=== PATIENT | female | born 1985 | race Caucasian/White ===

== ENCOUNTER 2018-12-20 07:02 | Inpatient (IN) | payer BC, SELFPAY ==
[2017-07-31 07:02] VITALS: BMI 22.2
[2018-12-20 07:24] VITALS: BMI 27.0
[2018-12-20] MEDS: Lactated Ringers 1,000 ML 50 ML IV ×3 (07:45→16:51)
[2018-12-20 08:07] LABS: Hemoglobin 11.2 g/dl (12.0-15.0); Mean Corp Hgb Conc 32.9 g/gl (32-36); Mean Corpuscular Hgb 31.2 pg (27.0-32.0); Mean Corpuscular Volume 94.7 fL (81-99); Platelet Count 159 K/mm3 (150-450); RBC Distribution Width CV 12.7 % (11.6-14.6); RBC Distribution Width SD 42.2 fl (35.1-43.9); Red Blood Count 3.59 M/mm3 (4.2-5.4); White Blood Count 5.9 K/mm3 (4.4-11.0)
[2018-12-20] MEDS: Oxytocin 30 units/NS 500 ml 30 UNITS/500 ML IV.SOLN IV (08:07)
[2018-12-20 08:09] LABS: Scan Indicated on CBC? Y/N NO
--- NOTE | 2018-12-20 10:57 | PCM.HP.OB ---
History Date of Admission: 12/20/18 Final PB: 12/25/18 Final PB Source: US <20 weeks Gestational age: 39 Weeks and 2 Days History of this : This is a 33 year-old, at 39-2/7 weeks gestation with EDC of 12/25/2018 presents for induction of labor due to advanced maternal age. Her has been uncomplicated to date other than she has advanced maternal age. She has a history of 2 previous miscarriages and one previous spontaneous vaginal delivery without complications. 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 No decelerations. TOCO Analysis: ctxs q2-3 min History Past Pregnancies: Past Pregnancies Delivery Date Name GA/Weeks Outcome Route Weight Gender Labor Length Anesthesia Delivery Location Provider FOB Expected Infant Delivery Method: Spontaneous Vaginal Review of Systems Constitutional: Denies: Anorexia, Chills, Fever Cardiovascular: Denies: Chest Pain Respiratory: Denies: Cough Gastrointestinal: Denies: Abdominal Pain Skin: Denies: Rash Neurological: Denies: Slurred speech Physical Exam General: Alert, Cooperative, No apparent distress Cardiovascular: Regular rate Lungs: Normal air movement Abdomen: Soft, Non Tender, Non-Distended, Gravid, Appropriate for Gestational Age Extremities:: Other - trace edema INCIDENT RESPONSE SPECIALIST: Normal external genitalia Estimated gestational size: Appropriate for gestational size Presentation: Cephalic Cervix Dilation (cm): 3 Station: -2 Effacement (%): 70 Assessment/Plan This is a 33 year-old, 4 para 1021 at 39-2/7 weeks for section of labor due to advanced maternal age. Risk benefits and alternatives have been discussed, consent was signed. We will proceed with Pitocin and artificial rupture of membranes for induction. Estimated weight is less than 4500 g clinically, and pelvis is clinically adequate to expect vaginal delivery. May have Nubain, nitrous oxide or epidural as needed for pain control.
[2018-12-20] MEDS: fentaNYL-bupivacaine (epidural) 100 ML BAG EPIDURAL (12:23)
[2018-12-20] MEDS: Oxytocin 30 units/NS 500 ml 30 UNITS/500 ML IV.SOLN 334 UNITS IV (17:24)
--- NOTE | 2018-12-20 17:53 | PCM.OB.VAG ---
Vaginal Delivery Maternal Presentation: Medically Indicated Induction Method of Induction: Pitocin, Amniotomy Medical Reason for Induction: - - advanced maternal age Amniotic Membrane Rupture Type: Artificial Amniotic Fluid Description: Clear Final PB: 12/25/18 Final PB Source: US <20 weeks Gestational age: 39 Weeks and 2 Days Date of Procedure: 12/20/18 Pre-Operative Diagnosis: labor Post-Operative Diagnosis: same Surgery/ Procedure Performed: Spontaneous Vaginal Delivery Type of Anesthesia: Epidural Presentation: ARVIN Placental Delivery Description: Spontaneous Placenta Disposition: [facility] Cord Vessel Description: 3 Vessels Nuchal Cord Compression: Without compression Cord Entanglement: Around neck x 1, loose Drain: Noriega to straight drain Estimated Blood Loss: 400 Infant A gender: Female (1 minute): 8 (5 minute): 9 Episiotomy Description: None Laceration: 1st degree - vaginal Medications given after delivery: IV Pitocin Complications: None
[2018-12-20] MEDS: Oxytocin 30 units/NS 500 ml 30 UNITS/500 ML IV.SOLN 167 UNITS IV (17:55)
[2018-12-20] MEDS: Ibuprofen 600 MG Tablet PO (19:08)
[2018-12-21] VITALS: BP 102/66; PULSE 78; RESP 18; TEMP 37.1
[2018-12-21] MEDS: Ibuprofen 600 MG Tablet PO ×3 (02:11→15:54)
[2018-12-21 04:00] VITALS: BP 94/58; PULSE 80; RESP 18; TEMP 36.7
[2018-12-21 08:00] VITALS: BP 100/67; PULSE 87; RESP 16; TEMP 36.3
--- NOTE | 2018-12-21 08:37 | PCM.PN.OB ---
Subjective: Patient sitting up in bed eating breakfast at this time. Patient reports no issues, baby is well without issue. Patient denies issue with ambulation or urination. Denies NUÑEZ, scotoma or dizziness. 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 Objective: VSS, Afebrile Nipples without cracks or blisters, no erythema or ecchymoses noted Abdomen NT x 4 quadrants, FF midline 2FB below umbilicus +2/4 reflexes in LE, no edema, negative calf tenderness to palpation Scant rubra lochia, intact perineum - Physical Exam General: Alert, Oriented x3, Cooperative HEENT: Atraumatic, Normocephalic Lungs: Normal air movement Cardiovascular: Regular rate, Regular Rhythm Abdomen: Soft, Non Tender Extremities: No edema, Capillary Refill Less than 3 Seconds Skin: No rashes, No breakdown Musculoskeletal: No Tenderness to Palpation of Joints or Extremities Neurological: Cranial nerves II-XII grossly intact Psych/Mental Status: Normal Affect, Appropriate Vital Signs Temp Pulse Resp BP 98.1 F 80 18 94/58 L 12/21/18 04:00 12/21/18 04:00 12/21/18 04:00 12/21/18 04:00 Weight: 194 lb 0.108 oz Body Mass Index (BMI) 27.0 Intake and Output for Last 24 Hours 12/19/18 12/20/18 12/21/18 23:59 23:59 23:59 Intake Total 2499 / 2499 Output Total 2450 / 2450 800 / 800 Balance 49 / 49 -800 / -800 Laboratory Tests Past 24 Hrs 12/20/18 07:45 Blood Type A POSITIVE Antibody Screen NEGATIVE Medical Necessity - Tobacco Use Smoking Status: Never smoker Assessment/Plan 33 y/o s/p , PPD #1, Normal PP Course P: 1) Anticipatory PP discharge teaching reviewed 2) Discharge patient to home pending discharge 3) RTC at 2 and 6 weeks PP to [facility] Office Ashleigh KAMINSKI
[2018-12-21] MEDS: Senna/Docusate Sodium 1 Tablet PO (08:56)
[2018-12-21 12:00] VITALS: BP 108/57; PULSE 78; RESP 18; TEMP 36.6
--- NOTE | 2018-12-21 15:15 | NURSING ---
Received report from Carol Ann Godoy RN. I will assume care of patient at this time.
[2018-12-21 15:50] VITALS: BP 118/75; PULSE 71; RESP 16; TEMP 36.9; O2SAT 96
[2018-12-21 19:41] VITALS: BP 121/80; PULSE 83; RESP 18; TEMP 36.8; O2SAT 96
--- NOTE | 2018-12-29 17:02 | NURSING ---
Follow up phone call no answer left message
== END 2018-12-21 20:03 | disposition home or self-care (01) | DRG 806 ==
PROVIDERS: Admitting Provider Obstetrics & Gynecology; Family Provider Internal Medicine; PCP Internal Medicine; Referring Provider Obstetrics & Gynecology; Visit Provider Obstetrics & Gynecology
DX: O69.81X0 Labor and delivery complicated by cord around neck, without compression, not applicable or unspecified (principal); O71.4 Obstetric high vaginal laceration alone; Z37.9 Outcome of delivery, unspecified; Z3A.39 39 weeks gestation of pregnancy
CPT/HCPCS: 59025; 59050; 85027; 86850; 86900; 99218; J7120; G0378

== ENCOUNTER → 2020-05-15 11:29 | Outpatient (CLI) | payer BC, SELFPAY ==
[2020-05-15 12:35] LABS: Absolute Lymphocyte Count 0.97 X10^3/uL (0.83-4.51); Absolute Neutrophil Count 5.5 X10^3/uL (2.0-7.7); Basophil# 0.02 X10^3/uL; Basophil% 0.3 % (0-1); Eosinophil# 0.03 X10^3/uL; Eosinophils% 0.4 % (0-5); Hematocrit 37.5 % (37-47); Hemoglobin 11.6 g/dL (12.0-15.0); Lymphocyte # 0.97 X10^3/ul (4.0); Lymphocyte % 13.7 % (19-41); Mean Corp Hgb Conc 30.9 g/dL (32-36); Mean Corpuscular Hgb 29.1 pg (27.0-32.0); Mean Platelet Vol. 10.2 fl (6.2-12.0); Monocyte# 0.53 X10^3/uL; Monocyte% 7.5 % (0-10); NRBC Flagged by Analyzer 0 % (0-5); Neutrophil # 5.52 X10^3/uL (2.7-7.7); Platelet Count 250 K/mm3 (150-450); RBC Distribution Width CV 12.6 % (11.6-14.6); RBC Distribution Width SD 43.6 fl (35.1-43.9); Red Blood Count 3.99 M/mm3 (4.2-5.4); White Blood Count 7.1 K/mm3 (4.4-11.0)
== END ==
PROVIDERS: PCP Internal Medicine; Referring Provider Internal Medicine Rheumatology; Visit Provider Internal Medicine Rheumatology
DX: D64.9 Anemia, unspecified (principal)
CPT/HCPCS: 36415; 85025

== ENCOUNTER → 2020-09-14 13:46 | Outpatient (CLI) | payer BC, SELFPAY ==
[2020-09-14 15:10] LABS: AST(SGOT) 19 U/L (15-37); Alanine Aminotransfer ALT/SGPT 37 U/L (13-56); Albumin, Serum 3.4 g/dL (3.2-5.0); Alkaline Phosphatase 72 U/L (45-117); Bilirubin, Direct 0.09 mg/dL (0.00-0.30); Globulin 3.6 g/dL (2.2-4.2)
== END ==
LOC: LABSPEC 13:48 → LAB 13:54
PROVIDERS: PCP Internal Medicine; Visit Provider Internal Medicine Rheumatology
DX: R74.8 Abnormal levels of other serum enzymes (principal)
CPT/HCPCS: 36415; 80076

== ENCOUNTER 2021-04-03 07:00 | Inpatient (IN) | payer BC, SELFPAY ==
[2021-04-03] VITALS (45 sets, daily range): BP systolic 91–132; BP diastolic 50–86; PULSE 57–100; TEMP 36.5–37.5; O2SAT 90–100; BMI 28.0
[2021-04-03 08:01] LABS: Absolute Lymphocyte Count 1.21 X10^3/uL (0.83-4.51); Absolute Neutrophil Count 3.9 X10^3/uL (2.0-7.7); Basophil# 0.01 X10^3/uL; Basophil% 0.2 % (0-1); Eosinophil# 0.02 X10^3/uL; Eosinophils% 0.4 % (0-5); Hematocrit 31.9 % (37-47); Hemoglobin 10.5 g/dL (12.0-15.0); Lymphocyte # 1.21 X10^3/ul (0.83-4.51); Lymphocyte % 21.7 % (19-41); Mean Corp Hgb Conc 32.9 g/dL (32-36); Mean Corpuscular Hgb 31.3 pg (27.0-32.0); Mean Corpuscular Volume 95.2 fL (81-99); Mean Platelet Vol. 10.2 fl (6.2-12.0); Monocyte% 7.2 % (0-10); NRBC Flagged by Analyzer 0 % (0-5); Platelet Count 180 K/mm3 (150-450); RBC Distribution Width CV 12.4 % (11.6-14.6); Red Blood Count 3.35 M/mm3 (4.2-5.4); White Blood Count 5.6 K/mm3 (4.4-11.0)
[2021-04-03] MEDS: Lactated Ringers 1,000 ML 50 ML IV (08:19)
[2021-04-03] MEDS: Oxytocin 30 units/NS 500 ml 30 UNITS/500 ML IV.SOLN IV (08:20)
[2021-04-03] MEDS: Lactated Ringers 500 ML 999 ML IV ×2 (11:30→12:52)
[2021-04-03] MEDS: fentaNYL-bupivacaine (epidural) 100 ML BAG EPIDURAL (13:02)
[2021-04-03] MEDS: Lactated Ringers 1,000 ML 200 ML IV (16:30)
[2021-04-03] MEDS: Oxytocin 30 units/NS 500 ml 30 UNITS/500 ML IV.SOLN 334 UNITS IV (18:48)
--- NOTE | 2021-04-03 19:02 | PCM.HP.OB ---
HPI - General General Date of Admission: 04/03/21 HPI Narrative ANNE MARIE BOWEN, is a 74 para 2-0-3-2 who presents at at 39 weeks and 1 day with EDC of 04/09/2021 for induction of labor due to advanced maternal age. She is had a regular contractions. Denies vaginal bleeding or leaking of fluid. has been uncomplicated to date except for advanced maternal age and suspected estimated weight greater than 95th percentile. Patient's relevant past medical history is significant for inflammatory arthritis. She also had antepartum anemia. Maternal Data Information PB Calculator Estimated Delivery Date Method Current WG Current Estimate 04/09/21 Manual 39w 1d PFSH PFSH Home Medications Prenatabs FA 1 tab PO DAILY 03/29/16 [History Last Taken 04/02/21] ferrous sulfate [iron] 325 mg PO DAILY 12/20/18 [History Last Taken 04/02/21] hydroxychloroquine 200 mg PO DAILY 04/03/21 [History Last Taken 04/03/21] sulfasalazine 500 mg PO BID 04/03/21 [History Last Taken 04/03/21] Allergy/AdvReac Type Severity Reaction Status Date / Time cefaclor [From [facility]] Allergy Hives Verified 03/29/16 14:21 Surgical History History of gynecologic surgery Social History Smoking Status: Never smoker History 6 Elective abortions Hx Para 2 Spontaneous abortions 3 Hx # Term Pregnancies 2 Ectopic pregnancies Hx # Pregnancies 0 Multiple births # of living children ROS Constitutional Constitutional: Denies fatigue, fever(s) or malaise Eyes Eyes: Denies change in vision ENT HEENT: Denies dizziness or headache(s) Cardiovascular Cardiovascular: Denies chest pain, dyspnea or lightheadedness Respiratory/Chest Respiratory/Chest: Denies cough or dyspnea Gastrointestinal Gastrointestinal: Denies change in bowel habits Genitourinary Genitourinary: Denies burning urination or genital lesions Integumentary Integumentary: Denies rash Neurologic Neurologic: Denies confusion, dizziness, headache(s), numbness or weakness Vital Signs Vital Signs Vital Signs: 04/03/21 07:50 04/03/21 07:51 04/03/21 08:32 Temperature 98.8 F Temperature Source Temporal Temporal Pulse Rate 84 87 Blood Pressure 93/53 L 106/64 BP Systolic 93 106 BP Diastolic 53 64 Pulse Ox 99 04/03/21 08:33 04/03/21 09:47 04/03/21 09:48 Temperature 98.8 F 98.8 F Temperature Source Temporal Pulse Rate 72 Blood Pressure 114/71 BP Systolic 114 BP Diastolic 71 Pulse Ox 04/03/21 11:05 04/03/21 12:11 04/03/21 12:12 Temperature 98.6 F Temperature Source Temporal Pulse Rate 73 72 Blood Pressure 118/74 129/83 H BP Systolic 118 129 BP Diastolic 74 83 Pulse Ox 99 04/03/21 12:16 04/03/21 12:18 04/03/21 12:21 Temperature Temperature Source Pulse Rate 88 95 87 Blood Pressure 131/58 H BP Systolic 131 BP Diastolic 58 Pulse Ox 100 100 04/03/21 12:22 04/03/21 12:27 04/03/21 12:29 Temperature Temperature Source Pulse Rate 98 99 100 Blood Pressure 124/80 H 116/70 BP Systolic 124 116 BP Diastolic 80 70 Pulse Ox 100 04/03/21 12:32 04/03/21 12:37 04/03/21 12:42 Temperature 98.8 F Temperature Source Temporal Pulse Rate 94 88 Blood Pressure 117/62 105/64 BP Systolic 117 105 BP Diastolic 62 64 Pulse Ox 100 100 100 04/03/21 12:43 04/03/21 12:47 04/03/21 12:48 Temperature Temperature Source Pulse Rate 96 88 79 Blood Pressure 113/65 93/50 L BP Systolic 113 93 BP Diastolic 65 50 Pulse Ox 100 04/03/21 12:52 04/03/21 12:54 04/03/21 12:57 Temperature Temperature Source Pulse Rate 64 63 63 Blood Pressure 91/53 L 93/55 L BP Systolic 91 93 BP Diastolic 53 55 Pulse Ox 100 04/03/21 12:58 04/03/21 13:01 04/03/21 13:04 Temperature 98.4 F Temperature Source Pulse Rate 63 61 Blood Pressure 91/54 L 97/56 L BP Systolic 91 97 BP Diastolic 54 56 Pulse Ox 04/03/21 13:19 04/03/21 14:16 04/03/21 15:21 Temperature 97.7 F L 98.6 F Temperature Source Pulse Rate 65 66 61 Blood Pressure 94/50 L 106/67 107/69 BP Systolic 94 106 107 BP Diastolic 50 67 69 Pulse Ox 04/03/21 16:26 04/03/21 16:27 04/03/21 17:37 Temperature 98.4 F 98.2 F Temperature Source Temporal Pulse Rate 57 L 78 Blood Pressure 96/52 L 113/71 BP Systolic 96 113 BP Diastolic 52 71 Pulse Ox 99 100 04/03/21 18:33 04/03/21 19:00 Temperature 98.4 F Temperature Source Pulse Rate 88 100 Blood Pressure 129/81 H 132/68 H BP Systolic 129 132 BP Diastolic 81 68 Pulse Ox 100 Weight Weight: 91.127 kg Body Mass Index (BMI) 28.0 Physical Exam Const alert and no apparent distress Narrative: Fundus firm, below umbilicus. Labs Labs Labs: Blood Type A POSITIVE Antibody Screen NEGATIVE Hct 31.9 % (37-47) L Hgb 10.5 g/dL (12.0-15.0) L Rhogam given: No Assessment & Plan (1) 39 weeks gestation of : (2) Multigravida of advanced maternal age in third trimester: PLAN: Risk benefits and alternatives to induction of labor were discussed with patient, questions were answered to her satisfaction and consent was signed. We will proceed with Pitocin and artificial rupture membranes for induction of labor. May have epidural, nitrous oxide or IV medications as needed for pain control. Estimated weight is approximately 4500 g and pelvis clinically adequate to expect vaginal delivery.
--- NOTE | 2021-04-03 19:06 | EX.PCM.OBRPT ---
Assessment & Plan (1) Normal vaginal delivery: Maternal Data Information PB Calculator Estimated Delivery Date Method Current WG Current Estimate 04/09/21 Manual 39w 1d Vaginal Delivery Maternal Presentation Maternal Presentation: Medically Indicated Induction Type of Induction: Pitocin and Amniotomy Operative Information Date of Procedure: 04/03/21 Pre-Operative Diagnosis: labor Post-Operative Diagnosis: same Surgery / Procedure Performed: Spontaneous Vaginal Delivery Type of Anesthesia: Epidural Special Medications: none Drain: Noriega to straight drain Estimated Blood Loss: 300 Time of Delivery: 18:47 Findings Description of Procedure: A vigorous male was delivered ARVIN over a small first-degree vaginal laceration. A loose nuchal cord ?1 was easily reduced. The remainder the was delivered with maternal pushing and gentle traction only in less than 15 seconds. The Pitocin infusion was initiated for active management of the third stage. The cord was clamped and cut after 1 minute. The was attended to by the waiting nursing staff. The placenta was delivered spontaneously and intact. The cervix and vagina were intact. The first-degree laceration was repaired with 3-0 Vicryl Rapide suture and was hemostatic. Sponge and needle counts were correct. A vaginal sweep was completed by me. Presentation: ARVIN Amniotic Membrane Rupture Type: Spontaneous Amniotic Fluid Description: Clear Placental Delivery Description: Spontaneous Placenta Disposition: [facility] Cord Vessel Description: 3 Vessels Cord Entanglement: Around neck x 1, loose Nuchal Cord Compression: Without compression Infant A Gender: Male (1 minute): 8 (5 minute): 9 Delayed Cord Clamping: Yes Post Vaginal Delivery Medications Given After Delivery: IV Pitocin Episiotomy Description: None Laceration: 1st degree Complication Complications: None Admit VTE Documentation VTE Present on Admission: No VTE Pharm Prophylaxis Ordered: No Reason Prophylaxis Not Ordered: Procedure Not Indicated
[2021-04-03] MEDS: 0.9% Saline Lock 10 ML Syringe IV (21:04)
[2021-04-03] MEDS: Senna/Docusate Sodium 1 Tablet PO (23:20)
[2021-04-03] MEDS: Ibuprofen 600 MG Tablet PO (23:20)
[2021-04-04] VITALS (9 sets, daily range): BP systolic 101–122; BP diastolic 58–73; PULSE 68–93; RESP 16–18; TEMP 36.8–37.1; O2SAT 97
[2021-04-04] MEDS: Ibuprofen 600 MG Tablet PO (07:59)
--- NOTE | 2021-04-04 08:30 | PCM.PN.OB ---
Subjective Subjective patient seen at bedside, doing well. Patient reports good pain control. lochia mild. breast feeding. Objective Data Objective Data Vital Signs: Vital Signs Temp Pulse Resp BP Pulse Ox 98.6 F 74 16 110/72 97 04/04/21 07:50 04/04/21 07:50 04/04/21 07:50 04/04/21 07:50 04/04/21 05:35 Oxygen Delivery Method Room Air Weight: 91.127 kg Body Mass Index (BMI) 28.0 Intake & Output: Intake and Output for Last 24 Hours 04/02/21 04/03/21 04/04/21 23:59 23:59 23:59 Intake Total 3233.76 / 3233.76 Output Total 2600 / 2600 400 / 400 Balance 633.76 / 633.76 -400 / -400 Lab / Micro Data Result Diagrams: 04/03/21 07:40 Labs: Laboratory Results - last 24 hr 04/03/21 07:40 Blood Type A POSITIVE Antibody Screen NEGATIVE Physical Exam Const alert and oriented x3 General Appearance: cooperative HEENT normocephalic Neck General: normal visual inspection GI soft to palpation and non-distended GI Narrative: Fundus firm Extremity normal to inspection and no calf tenderness Skin no rashes or lesions noted Neuro oriented x3 and CN's II-XII intact bilaterally Psych mental status grossly normal Assessment & Plan (1) Normal vaginal delivery: PLAN: PPD#1 , Doing well Routine care pain mgmt ambulation dc home at 24 hrs if infant cleared
--- NOTE | 2021-04-04 08:31 | PCM.DC ---
Discharge Instructions Diet Discharge Diet: No restrictions Activity May resume sexual activity in: 6-8 weeks Dressing / Incision Call your doctor if you observe: Fever of 101 or Higher, Inability to urinate, Using more than 1 pad per hour and Uncontrolled pain Follow Up Care Please Follow Up With: Marleny Monet MD When: 1-2 weeks post and again at 6 weeks post . [phone] Test Results: Test results from this visit will be discussed in further detail at your follow-up appointment, if applicable. Discharge Plan Admission Admit Date/Time: 04/03/21 07:00 Attending Provider: Landy Rosales Primary Care Provider: Mariel Gambino Discharge Orders/Prescriptions Prescriptions: New acetaminophen 500 mg Tablet 1,000 mg PO Q6H PRN PRN (Reason: Pain 1-10 Or Fever) Qty: 0 RF: 0 ibuprofen 600 mg Tablet 600 mg PO Q6H PRN PRN (Reason: Pain Score 1-3) Qty: 0 RF: 0 Continued Prenatabs FA 1 TABLET tablet 1 tab PO DAILY RF: 0 ferrous sulfate [iron] 325 MG tablet 325 mg PO DAILY RF: 0 sulfasalazine 500 mg tablet,delayed release (DR/EC) 500 mg PO BID RF: 0 hydroxychloroquine 200 mg tablet 200 mg PO DAILY RF: 0 Referrals / Follow Up: Mariel Gambino MD [Primary Care Provider] - Disposition Disposition (needs filled in before D/C Order can be placed): Home, Self Care
[2021-04-04] MEDS: Hydroxychloroquine 200 MG Tablet PO (10:15)
== END 2021-04-04 19:55 | disposition home or self-care (01) | DRG 806 ==
PROVIDERS: Admitting Provider Obstetrics & Gynecology; PCP Internal Medicine; Visit Provider Obstetrics & Gynecology
DX: O69.81X0 Labor and delivery complicated by cord around neck, without compression, not applicable or unspecified (principal); O71.4 Obstetric high vaginal laceration alone; Z37.0 Single live birth; Z3A.39 39 weeks gestation of pregnancy
CPT/HCPCS: 59025; 59050; 85025; 86850; 86900; 86901; 99218; J7120; A4216; G0378

== ENCOUNTER 2022-09-26 07:00 | Inpatient (IN) | payer OTHER, SELFPAY ==
[2022-09-26] VITALS (71 sets, daily range): BP systolic 87–145; BP diastolic 52–82; PULSE 72–125; RESP 17; TEMP 36.4–37.1; O2SAT 85–100; BMI 28.2
[2022-09-26] MEDS: Lactated Ringers 1,000 ML 50 ML IV (07:35)
[2022-09-26] MEDS: Oxytocin 15 Units/NS 250ml 15 UNITS/250 ML IV.SOLN 2 UNITS IV (07:47)
[2022-09-26 07:54] LABS: Absolute Lymphocyte Count 1.22 X10^3/uL (0.83-4.51); Absolute Neutrophil Count 4.7 X10^3/uL (2.0-7.7); Basophil# 0.01 X10^3/uL; Basophil% 0.2 % (0-1); Eosinophil# 0.02 X10^3/uL; Eosinophils% 0.3 % (0-5); Hematocrit 33.2 % (37-47); Hemoglobin 10.9 g/dL (12.0-15.0); Lymphocyte # 1.22 X10^3/ul (0.83-4.51); Lymphocyte % 18.9 % (19-41); Mean Corp Hgb Conc 32.8 g/dL (32-36); Mean Corpuscular Hgb 31.6 pg (27.0-32.0); Mean Corpuscular Volume 96.2 fL (81-99); Mean Platelet Vol. 10.5 fl (6.2-12.0); Monocyte# 0.46 X10^3/uL; Monocyte% 7.1 % (0-10); NRBC Flagged by Analyzer 0 % (0-5); Neutrophil % 72.7 % (47-70); Platelet Count 182 K/mm3 (150-450); RBC Distribution Width CV 12.9 % (11.6-14.6); RBC Distribution Width SD 45.1 fl (35.1-43.9); Red Blood Count 3.45 M/mm3 (4.2-5.4); White Blood Count 6.5 K/mm3 (4.4-11.0)
--- NOTE | 2022-09-26 08:07 | PCM.HP.OB ---
HPI - General General Date of Admission: 09/26/22 Date of Service: 09/26/22 Chief Complaint: induction of labor HPI Narrative ANNE MARIE BOWEN, is a 37 F who for induction of labor due to AMA PFSH PFS Home Medications vits,calcium no.78-iron fumarate-folic acid 29 mg-1 mg tablet (Prenatabs FA) 1 tab PO DAILY pregnacy 03/29/16 [History Last Taken 04/02/21] ferrous sulfate 325 mg (65 mg iron) tablet (iron) 325 mg PO DAILY anemia 12/20/18 [History Last Taken 04/02/21] hydroxychloroquine 200 mg tablet 200 mg PO DAILY Arthritis 04/03/21 [History Last Taken 04/03/21] sulfasalazine 500 mg tablet,delayed release 500 mg PO BID Arthritis 04/03/21 [History Last Taken 04/03/21] acetaminophen 500 mg tablet 1,000 mg PO Q6H PRN PRN Pain 1-10 Or Fever #0 tabs 04/04/21 [Rx Last Taken Unknown] Allergy/AdvReac Type Severity Reaction Status Date / Time cefaclor [From [facility]] Allergy Hives Verified 09/26/22 08:08 Surgical History History of gynecologic surgery Social History Smoking Status: Never smoker History 6 Elective abortions Hx Para 2 Spontaneous abortions 3 Hx # Term Pregnancies 2 Ectopic pregnancies Hx # Pregnancies 0 Multiple births # of living children ROS Constitutional Constitutional: Denies fatigue, fever(s) or malaise Eyes Eyes: Denies change in vision ENT HEENT: Denies dizziness or headache(s) Cardiovascular Cardiovascular: Denies chest pain, dyspnea or lightheadedness Respiratory/Chest Respiratory/Chest: Denies cough or dyspnea Gastrointestinal Gastrointestinal: Denies change in bowel habits Genitourinary Genitourinary: Denies burning urination or genital lesions Integumentary Integumentary: Denies rash Neurologic Neurologic: Denies confusion, dizziness, headache(s), numbness or weakness Vital Signs Vital Signs Vital Signs: 09/26/22 07:21 09/26/22 07:21 09/26/22 07:50 Temperature Temperature Source Temporal Pulse Rate 125 H Blood Pressure 125/82 H BP Systolic 125 BP Diastolic 82 Pulse Ox 09/26/22 07:50 09/26/22 07:50 Temperature 97.7 F L Temperature Source Pulse Rate Blood Pressure BP Systolic BP Diastolic Pulse Ox 98 Weight Weight: 91.852 kg Body Mass Index (BMI) 28.2 Physical Exam Const alert and no apparent distress General Appearance: cooperative HEENT normocephalic Resp normal respiratory effort Cardio regular rate GI soft to palpation GI Narrative: gravid, nontender, appropriate for gestational age Extremity no calf tenderness General Extremity: edema Skin no wounds Rashes: No rashes noted Psych activity/motor behavior normal Labs Labs Labs: Blood Type A POSITIVE Antibody Screen NEGATIVE Hct 33.2 % (37-47) L Hgb 10.9 g/dL (12.0-15.0) L Rhogam given: No Assessment & Plan (1) Multigravida of advanced maternal age in third trimester: PLAN: Estimated weight less than 5000 g clinically and pelvis clinically adequate to expect vaginal delivery. Risk benefits and alternatives to induction were discussed and patient desires to proceed. Artificial rupture membranes performed with return of small amount of clear fluid. Proceed with Pitocin and artificial rupture membrane induction. May have routine pain control measures (2) 39 weeks gestation of :
[2022-09-26] MEDS: LACTATED RINGERS 500 ML 999 ML IV (13:10)
[2022-09-26] MEDS: fentaNYL-bupivacaine (epidural) 100 ML BAG EPIDURAL ×2 (14:42→18:05)
[2022-09-26] MEDS: Lactated Ringers 1,000 ML 200 ML IV (17:27)
--- NOTE | 2022-09-26 19:02 | PCM.OPRPT ---
Problems Associated Problem List Diagnoses (1) 39 weeks gestation of : (2) Multigravida of advanced maternal age in third trimester: (3) Normal vaginal delivery: Report of Operation Date of Procedure: 09/26/22 Pre-Operative Diagnosis: 39 week gestation, AMA, single IUP, planned induction of labor Post-Operative Diagnosis: As above Surgery/Procedure Performed:: Vaginal delivery Description of Surgical Findings:: VFI in OA position. Apgars 8, 9. Right sided joaquín urethral laceration Surgeon: Marie Moore Type of Anesthesia: Epidural Special Medications: None Specimen's removed: Placenta Drains: Noriega removed at time of delivery Estimated Blood Loss (mL): 100 Fluids Replaced: N/A Description of Procedure: The patient was complete and pushing. The head of the infant was delivered in occiput anterior position. The infant's shoulders were delivered spontaneously, followed by the body. A vigorous viable female infant was delivered atraumatically, and without traction, force, or delay. The viable female infant was placed on maternal abdomen. The cord was clamped and cut after a 60 sec delay by the father the baby. The placenta was delivered with fundal massage and noted to be normal-appearing and intact with a three-vessel cord. The uterus was explored x1. Fundus firm and bleeding hemostatic. No vaginal or perineal lacerations were noted. A right-sided periurethral laceration was noted to be hemostatic. Sponge counts were correct. Vaginal sweep was performed. Grafts/Implants Used: None Complications None Admit VTE Documentation VTE Present on Admission: No VTE Mechan Device Prophylaxis: SCD's
[2022-09-26] MEDS: 0.9% Saline Lock 10 ML Syringe IV (19:44)
--- NOTE | 2022-09-26 21:32 | NURSING ---
this RN received bedside report from Yan White RN at 0 and assumed care of pt at that time, report given to Jonelle Michele RN at 2119 who assumed care of pt at that time
--- NOTE | 2022-09-26 23:23 | NURSING ---
during 2319 assessment, pt fundus was +1 firm and midline, pt stated she feels like her bladder is full and that she feels like she could pee. Will reassess fundus after getting pt up to bathroom and her voiding.
[2022-09-27] VITALS (8 sets, daily range): BP systolic 103–127; BP diastolic 68–77; PULSE 76–116; RESP 16; TEMP 36.5–36.8
[2022-09-27] MEDS: Hydroxychloroquine 200 MG Tablet PO (09:28)
[2022-09-27] MEDS: sulfaSALAzine 500 MG Tablet PO ×2 (09:29→17:08)
--- NOTE | 2022-09-27 15:29 | PCM.PN.OB ---
Subjective Subjective Patient seen at bedside. Feeling good. Ambulating and voiding without difficulty. Lochia decreasing. Desires discharge home tonight. Objective Data Objective Data Vital Signs: Vital Signs Temp Pulse Resp BP Pulse Ox 97.7 F L 76 16 127/77 H 98 09/27/22 12:41 09/27/22 15:15 09/27/22 12:41 09/27/22 15:15 09/26/22 21:10 Weight: 202 lb 8 oz Body Mass Index (BMI) 28.2 Intake & Output: Intake and Output for Last 24 Hours 09/25/22 09/26/22 09/27/22 23:59 23:59 23:59 Intake Total 2009. Output Total 1250 / 1250 400 / 400 Balance 760.00 / 760.00 -400 / -400 Lab / Micro Data Result Diagrams: 09/26/22 07:35 ROS Eyes Eyes: Denies blurry vision, change in vision or spots in vision ENT HEENT: Denies dizziness or headache(s) Cardiovascular Cardiovascular: Denies abdominal pain, chest pain or dyspnea Respiratory/Chest Respiratory/Chest: Denies cough, dyspnea, shortness of breath at rest or shortness of breath with exertion Gastrointestinal Gastrointestinal: Denies abdominal pain, diarrhea or vomiting Genitourinary Genitourinary: Denies change in urinary stream, difficulty urinating or dysuria Musculoskeletal Musculoskeletal: Reports none Integumentary Integumentary: Denies rash Neurologic Neurologic: Denies dizziness, headache(s), memory loss or weakness Physical Exam Const alert and no apparent distress General Appearance: cooperative and comfortable Exam Limitations: no limitations HEENT normocephalic Eyes General Eye: normal appearance of both eyes Neck full ROM General: normal visual inspection Chest Chest: symmetrical chest wall rise Resp normal respiratory effort and normal air movement Effort and Inspection: symmetric chest movement Auscultation: clear to auscultation bilaterally Cardio regular rate and regular rhythm GI normal to inspection, nondistended, normoactive bowel sounds Back/Spine normal ROM Extremity full ROM and no calf tenderness General Extremity: normal exam except as noted Skin no rashes or lesions noted Neuro CN's II-XII intact bilaterally Psych mental status grossly normal Assessment & Plan (1) Normal vaginal delivery: (2) Multigravida of advanced maternal age in third trimester: PLAN: Plan PPD 1 Routine care Pain control D/C home with follow up in office
--- NOTE | 2022-09-27 15:31 | DCINST_ITS ---
Discharge Instructions Diet Discharge Diet: No restrictions Activity Discharge Activity: Return to Normal Activity, May Shower and May Take a Tub Bath May resume sexual activity in: 4-6 weeks Weight Bearing Status: Weight bearing as tolerated Dressing / Incision Call your doctor if you observe: Inability to urinate, Using more than 1 pad per hour, Shortness of breath, Dizziness, Swelling in the ankles, Chest pain, Calf discomfort and Uncontrolled pain Follow Up Care When: Within 10 days Test Results: Test results from this visit will be discussed in further detail at your follow- up appointment, if applicable. Discharge Plan Admission Admit Date/Time: 09/26/22 07:00 Primary Reason for Your Visit: Labor and Delivery Attending Provider: Marleny Monet Primary Care Provider: Mariel Gambino Discharge Orders/Prescriptions Prescriptions: No Action Prenatabs FA 1 TABLET tablet 1 tab PO DAILY ferrous sulfate [iron] 325 MG tablet 325 mg PO DAILY sulfasalazine 500 mg tablet,delayed release (DR/EC) 500 mg PO BID Label Comments: take 1 tablet by mouth twice a day hydroxychloroquine 200 mg tablet 200 mg PO DAILY Label Comments: take 1 tablet by mouth once daily acetaminophen 500 mg Tablet 1,000 mg PO Q6H PRN PRN (Reason: Pain 1-10 Or Fever) Qty: 0 0RF Referrals / Follow Up: Mariel Gambino MD [Primary Care Provider] - Disposition Disposition (needs filled in before D/C Order can be placed): Home, Self Care
== END 2022-09-27 19:20 | disposition home or self-care (01) | DRG 806 ==
PROVIDERS: Admitting Provider Obstetrics & Gynecology; PCP Internal Medicine; Referring Provider Obstetrics & Gynecology; Visit Provider Obstetrics & Gynecology
DX: O71.82 Other specified trauma to perineum and vulva (principal); Z37.0 Single live birth; O99.354 Diseases of the nervous system complicating childbirth; M06.4 Inflammatory polyarthropathy; Z3A.39 39 weeks gestation of pregnancy
CPT/HCPCS: 59025; 59050; 85025; 86850; 86900; 86901; 99218; J7120; A4216; G0378

== ENCOUNTER → 2023-02-01 | Outpatient (CLI) | payer OTHER, SELFPAY ==
[2023-02-01 10:31] LABS: Absolute Lymphocyte Count 1.23 X10^3/uL (0.83-4.51); Absolute Neutrophil Count 4.3 X10^3/uL (2.0-7.7); Basophil# 0.02 X10^3/uL; Basophil% 0.3 % (0-1); Eosinophil# 0.03 X10^3/uL; Eosinophils% 0.5 % (0-5); Hematocrit 37.2 % (37-47); Hemoglobin 11.5 g/dL (12.0-15.0); Lymphocyte # 1.23 X10^3/ul (0.83-4.51); Mean Corp Hgb Conc 30.9 g/dL (32-36); Mean Corpuscular Hgb 29.9 pg (27.0-32.0); Mean Corpuscular Volume 96.9 fL (81-99); Mean Platelet Vol. 9.3 fl (6.2-12.0); Monocyte# 0.54 X10^3/uL; Monocyte% 8.8 % (0-10); NRBC Flagged by Analyzer 0 % (0-5); Neutrophil # 4.33 X10^3/uL (2.7-7.7); Neutrophil % 70.2 % (47-70); Platelet Count 238 K/mm3 (150-450); RBC Distribution Width SD 42.8 fl (35.1-43.9); Red Blood Count 3.84 M/mm3 (4.2-5.4); White Blood Count 6.2 K/mm3 (4.4-11.0)
== END | disposition home or self-care (01) ==
LOC: LAB 09:51
PROVIDERS: PCP Internal Medicine; Referring Provider Internal Medicine Rheumatology; Visit Provider Internal Medicine Rheumatology
DX: D64.9 Anemia, unspecified (principal)
CPT/HCPCS: 36415; 85025

== ENCOUNTER → 2023-10-14 | Outpatient (CLI) | payer OTHER, SELFPAY ==
[2023-10-14 12:12] LABS: Absolute Lymphocyte Count 1.44 X10^3/uL (0.83-4.51); Absolute Neutrophil Count 4.6 X10^3/uL (2.0-7.7); Basophil# 0.03 X10^3/uL; Basophil% 0.4 % (0-1); Eosinophil# 0.09 X10^3/uL; Eosinophils% 1.3 % (0-5); Hematocrit 35.2 % (37-47); Hemoglobin 10.9 g/dL (12.0-15.0); Lymphocyte # 1.44 X10^3/ul (0.83-4.51); Lymphocyte % 21.1 % (19-41); Mean Corpuscular Hgb 28.2 pg (27.0-32.0); Mean Corpuscular Volume 91.2 fL (81-99); Mean Platelet Vol. 9.9 fl (6.2-12.0); Monocyte# 0.68 X10^3/uL; NRBC Flagged by Analyzer 0 % (0-5); Neutrophil # 4.55 X10^3/uL (2.7-7.7); Neutrophil % 66.9 % (47-70); Platelet Count 258 K/mm3 (150-450); RBC Distribution Width CV 13.3 % (11.6-14.6); RBC Distribution Width SD 44.3 fl (35.1-43.9); Red Blood Count 3.86 M/mm3 (4.2-5.4); White Blood Count 6.8 K/mm3 (4.4-11.0)
== END | disposition home or self-care (01) ==
PROVIDERS: PCP Internal Medicine; Referring Provider Internal Medicine Rheumatology; Visit Provider Internal Medicine Rheumatology
DX: D64.9 Anemia, unspecified (principal)
CPT/HCPCS: 36415; 85025